=== PATIENT | female | born 1990 | race Two or more races ===

== ENCOUNTER 2025-03-28 12:40 | Inpatient (IN) | payer OTHER ==
[~2025-03-28] VITALS: Ht 167.6 cm; Wt 3.2 kg
[2025-04-15 14:27] VITALS: BP 121/63
[2025-04-15] MEDS ORDERED: INTEGRA F CAPS1 EAC1 PO (14:29)
[2025-04-15] MEDS ORDERED: LEVOTHYROXINE88 MCG PO (14:29)
[2025-04-15] MEDS ORDERED: PRENATAL + DHA1 EAC1 PO (14:30)
[2025-04-15] MEDS ORDERED: RINGERS SOLUTION,LACTATED 1,000 ML IV SCH (14:45)
[2025-04-15 15:21] VITALS: BP 109/56
[2025-04-15 15:24] LABS: BASO % 0.3 % (0.1-1.2); EOS # 0.07 (0.04-0.54); EOS % 1.0 % (0.7-7.0); LYMPH # 1.20 (1.18-3.74); LYMPH % 16.5 % (19.3-53.1); MEAN PLATELET VOLUME 9.80 fl (9.4-12.4); MONO # 0.53 (0.24-0.82); MONO % 7.3 % (4.7-12.5); NEUT # 5.33 (1.56-6.13); NEUT % 73.1 % (34.0-71.1); RED CELL DISTRIBUTION WIDTH 14.1 % (11.6-14.4)
[2025-04-15 15:37] LABS: INR 0.96
[2025-04-15 15:42] LABS: ALT/SGPT 55.0 U/L (12-78); AST/SGOT 31.0 U/L (15-37); BILIRUBIN TOTAL 0.34 mg/dL (0.3-1.2); BUN CREA RATIO 21.0 (7.0-25.0); CREATININE SERUM 0.52 mg/dL (0.55-1.02); GFR 133.43; GLOBULINA 3.6 G/DL (2.4-3.5); GLUCOSE FASTING 86.0 mg/dL (65-100); OSMOLALITY SERUM 280.0 MOSM/KG (275-295); TSH 1.82 uIU/mL (0.358-3.74)
[2025-04-15] MEDS ORDERED: MISOPROSTOL 25 MCG TABLET ONE (17:09)
[2025-04-15] MEDS ORDERED: MORPHINE SULFATE 4 MG/ML CARTRIDGE IV PRN (18:00)
[2025-04-15] MEDS ORDERED: MISOPROSTOL 25 MCG TABLET VAG ONE (18:00)
[2025-04-15 19:35] VITALS: BP 116/65
[2025-04-15 23:20] VITALS: BP 110/69
[2025-04-16 04:20] VITALS: BP 111/66
[2025-04-16 07:25] VITALS: BP 125/80
[2025-04-16] MEDS ORDERED: OXYTOCIN 500 ML IV ONE (08:00)
[2025-04-16 10:53] VITALS: BP 131/67
[2025-04-16] MEDS ORDERED: ERYTHROMYCIN BASE OPHT 1GM EACH TUBE OP ONE (12:47)
[2025-04-16] MEDS ORDERED: OXYTOCIN 10 UNITS/ML VIAL ONE ×2 (12:47→17:28)
[2025-04-16] MEDS ORDERED: CEFAZOLIN SODIUM 1,000 MG VIAL ONE (14:06)
[2025-04-16] MEDS ORDERED: OXYTOCIN 1,000 ML IV SCH (15:00)
[2025-04-16] MEDS ORDERED: MORPHINE SULFATE 4 MG/ML CARTRIDGE IV PRN (15:00)
[2025-04-16] MEDS ORDERED: MORPHINE SULFATE 4 MG/ML VIAL IV ONE (17:20)
[2025-04-16 18:01] VITALS: BP 115/64
[2025-04-16 23:45] VITALS: BP 133/72
[2025-04-17] VITALS: BP 106/70
[2025-04-17] MEDS ORDERED: OxyCODONE HCL 5 MG TABLET (ROXICODONE) PO SCH (08:00)
[2025-04-17] MEDS ORDERED: KETOROLAC TROMETHAMINE 10 MG TABLET PO SCH (08:00)
[2025-04-17 09:42] VITALS: BP 108/71
[2025-04-17 11:01] LABS: BASO % 0.2 % (0.1-1.2); EOS # 0.02 (0.04-0.54); EOS % 0.2 % (0.7-7.0); LYMPH # 1.25 (1.18-3.74); LYMPH % 11.3 % (19.3-53.1); MEAN PLATELET VOLUME 9.80 fl (9.4-12.4); MONO # 0.68 (0.24-0.82); MONO % 6.1 % (4.7-12.5); NEUT # 9.02 (1.56-6.13); NEUT % 81.5 % (34.0-71.1); RED CELL DISTRIBUTION WIDTH 14.5 % (11.6-14.4)
[2025-04-17 16:09] VITALS: BP 96/61
[2025-04-18 00:35] VITALS: BP 101/66
[2025-04-18 09:05] VITALS: BP 120/74
== END 2025-04-18 13:14 | disposition home or self-care (01) | DRG 788 ==
LOC: OB/GYN 04-09 12:39 → LDR 04-15 14:04 → O/R 04-16 13:51 → OB/GYN 04-16 15:18
PROVIDERS: Obstetrics & Gynecology Maternal & Fetal Medicine; ADMIT Obstetrics & Gynecology Gynecology; ATTEND Obstetrics & Gynecology Gynecology
PROC: 3E0P7VZ Introduction of Hormone into Female Reproductive, Via Natural or Artificial Opening (ICD-10-PCS; 2025-04-15)
PROC: 4A1HXCZ Monitoring of Products of Conception, Cardiac Rate, External Approach (ICD-10-PCS; 2025-04-15)
PROC: 3E033VJ Introduction of Other Hormone into Peripheral Vein, Percutaneous Approach (ICD-10-PCS; 2025-04-16)
PROC: 10D00Z1 Extraction of Products of Conception, Low, Open Approach (ICD-10-PCS; principal; 2025-04-16 13:30)
DX: O33.8 Maternal care for disproportion of other origin (principal); O48.0 Post-term pregnancy; Z3A.41 41 weeks gestation of pregnancy; Z37.0 Single live birth

== ENCOUNTER 2025-04-03 09:11 | Outpatient (CLI) | payer OTHER | END 2025-04-03 10:01 | disposition home or self-care (01) | LOC: NST 09:11 | PROVIDERS: ATTEND Obstetrics & Gynecology Maternal & Fetal Medicine | DX: Z34.83 Encounter for supervision of other normal pregnancy, third trimester (principal) ==

== ENCOUNTER 2025-04-08 09:01 | Outpatient (CLI) | payer OTHER | END 2025-04-08 09:43 | disposition home or self-care (01) | LOC: NST 09:01 | PROVIDERS: ATTEND Obstetrics & Gynecology Maternal & Fetal Medicine | DX: Z34.83 Encounter for supervision of other normal pregnancy, third trimester (principal) ==

== ENCOUNTER 2025-04-11 08:49 | Outpatient (CLI) | payer OTHER | END 2025-04-11 09:46 | disposition home or self-care (01) | LOC: NST 08:49 | PROVIDERS: ATTEND Obstetrics & Gynecology Maternal & Fetal Medicine | DX: Z34.83 Encounter for supervision of other normal pregnancy, third trimester (principal) ==

== ENCOUNTER 2025-04-14 09:31 | Outpatient (CLI) | payer OTHER ==
[2025-04-15] MEDS ORDERED: INTEGRA F CAPS1 EAC1 PO (14:29)
[2025-04-15] MEDS ORDERED: LEVOTHYROXINE88 MCG PO (14:29)
[2025-04-15] MEDS ORDERED: PRENATAL + DHA1 EAC1 PO (14:30)
== END 2025-04-14 10:23 | disposition home or self-care (01) ==
LOC: NST 09:31
PROVIDERS: ATTEND Obstetrics & Gynecology Maternal & Fetal Medicine
DX: Z34.83 Encounter for supervision of other normal pregnancy, third trimester (principal)